=== PATIENT | male | born 1980 | race Caucasian/White ===

== ENCOUNTER 2024-06-10 10:14 | Outpatient (REF) | payer SELFPAY ==
--- OUTSIDE RECORDS SUMMARY | 2024-06-10 10:59 | XMS_ITS | Clinical Summary ---
Author Organization [employer] Address [address] [facility] [address] [place] [address] Care Team Providers Care Forklift Driver Name Role Phone Unavailable Primary Care Provider Unavailabl e Allergies Active Allergy Reactions Criticality Noted Date Comments Sulfamethoxazole-Trimethoprim Hives,Rash Low 2024 Medications * This document contains information received from the source organization and may not represent a complete record from that organization. buprenorphine ER (Sublocade) 300 mg/1.5mL injectionIndi cations:Uncom plicated opioid dependence (CMS/HCC) Inject 1.5 mL (1 each) under the skin every month to absorb continually. 1.5 mL 1 05/27/19 25 025 Active nicotine (Nicoderm CQ) 21 MG/24HR patchIndicati ons:Tobacco use disorder Place 1 patch on the skin 1 (one) time each day at the same time. 42 patch 05/27/19 25 025 Active docusate sodium (Colace) 100 MG capsuleIndica tions:Uncompl icated opioid dependence (CMS/HCC) 1 or 2 capsules PO at bedtime prn constipation (stool softener). 60 capsule 3 06/03/19 25 Active sennosides (Senokot) 8.6 MG tabletIndicat ions:Uncompli cated opioid dependence (CMS/HCC) 1 or 2 tabs PO at bedtime prn constipation (natural intestinal stimulant). 60 tablet 3 06/03/19 25 Active docusate sodium (Colace) 100 MG capsuleIndica tions:Uncompl icated opioid dependence (CMS/HCC) 1 or 2 capsules PO at bedtime prn constipation (stool softener). 60 capsule 3 06/03/19 25 025 Discontinued(R eorder (will not trigger notification to Pharmacy)) sennosides (Senokot) 8.6 MG tabletIndicat ions:Uncompli cated opioid dependence (CMS/HCC) 1 or 2 tabs PO at bedtime prn constipation (natural intestinal stimulant). 60 tablet 3 06/03/19 25 025 Discontinued(R eorder (will not trigger notification to Pharmacy)) Hospital, Clinic, or Other Facility Administered Medication Ordered Dose Route Frequency Start Date End Date Status buprenorphine ER (Sublocade) 300 mg/1.5mL injection 1 eachIndications:Uncompli cated opioid dependence (CMS/HCC) 1 each SC Over 1 month 05/27/2024 05/27/2024 Ended Encounters * This document contains information received from the source organization and may not represent a complete record from that organization. Date Type Department Care Team Description 06/10/2024 10:45 AM EST Clinical Support [address] [address] Layne Gonzalez RN Uncomplicated opioid dependence (CMS/HCC) (Primary Dx); Tobacco use disorder; Crack cocaine use 06/10/2024 Patient Outreach [address] [address] Zana Burns Recovery Supports 06/10/2024 Travel 06/03/2024 10:00 AM EST Office Visit [address] [address] Sreekanth Lyons MD Uncomplicated opioid dependence (CMS/HCC) (Primary Dx); Tobacco use disorder; Crack cocaine use 06/03/2024 Orders Only [address] [address] Lucy Carlson RN Other depression 06/03/2024 Travel 05/27/2024 11:15 AM EST Office Visit [address] [address] Sreekanth Lyons MD Uncomplicated opioid dependence (CMS/HCC) (Primary Dx); Tobacco use disorder; Crack cocaine use 05/27/2024 Travel 05/25/2024 10:00 AM EST Office Visit [address] [address] Lucy Carlson RN Uncomplicated opioid dependence (CMS/HCC) 05/25/2024 Travel 05/18/2024 Telephone [facility] MEDICINE [address] [place] [address] Lucy Carlson RN from Last 3 Months Social History Tobacco Use Types Packs/Day Years Used Date Smoking Tobacco: Every Day Cigarettes Smokeless Tobacco: Never Tobacco Cessation:Ready to Q uit: Not Asked; Counseling Given: Not Answered Alcohol Use Standard Drinks/Week Comments Not Currently 0 (1 standard drink = 0.6 oz pur e alcohol) Depression Answer Date Recorded Patient Health Questionnaire-9 Score 0 05/27/2024 Patient Health Questionnaire-9 Score 0 05/27/2024 Last PHQ-9: Questionnaire Data Not on file 0 05/27/2024 Housing Stability Answer Date Recorded What is your housing situation today? I have housing today, but I am worried about losing housing in the future 05/27/[address] you li ve. Do you have problems with any of the following? None of the above 05/27/2024 Food Insecurity Answer Date Recorded Within the past 12 months, y ou worried that your food would run out before you got money to buy more: Sometimes True 2024 Within the past 12 months,th e food you bought just didn't last and you didn't have enough money to get more: Sometimes True 05/27/2024 Transportation Answer Date Recorded In the past 12 months, has l ack of transportation kept you from medical appts, meetings, work or from getting things needed for daily living? No 05/27/2024 Utilities Answer Date Recorded In the past 12 months, has t he electric, gas, oil or water company threatened to shut off services in your home? No 05/27/2024 Depression Answer Date Recorded Patient Health Questionnaire-2 Score 0 05/27/2024 Internet Access Answer Date Recorded Internet Access Q1 I am not sure 05/27/2024 Internet Access Q2 Not on file 05/27/2024 Sex and Gender Information Value Date Recorded Sex Assigned at Male 05/25/2024 10:07 AM EST Legal Sex Male 8:35 PM EDT Gender Identity Male 05/25/2024 10:07 AM EST Sexual Orientation Straight 05/25/2024 10 :08 AM EST Last Filed Vital Signs Vital Sign Reading Time Taken Comments Blood Pressure 125/83 05/27/2024 10:44 AM EST Pulse 65 05/27/2024 10:44 AM EST Temperature 36.4 ??C (97.5 ??F) 05/27/2024 10:[address] Respiratory Rate 16 05/27/2024 10:44 AM EST Oxygen Saturation - - Inhaled Oxygen Concentration - - Weight 149 kg (328 lb) 05/27/2024 10:44 AM EST Height - - Body Mass Index - - Plan of Treatment Upcoming Encounters Date Type Department Care Team (Late st Contact Info) Description 06/17/2024 11:00 AM EST Office Visit [facility] MEDICINE [address] [place] [address] Sreekanth Lyons MD [address] [place], [place] [phone] Health Maintenance Due Date Last Done Comments CT Colonography 1979 Colonoscopy 1979 Colorectal Cancer Screening 1979 FIT DNA/Cologuard 1979 FIT 1979 FOBT 1979 HIV Screening 1979 Lipid Panel 1979 Sigmoidoscopy 1979 Family Planning (PISQ) 1994 Hepatitis C Screening 1997 DTaP/Tdap/Td Vaccines (1 - Tdap) 1998 Hepatitis B Vaccines (1 of 3 - 19+ 3-dose series) 1998 Pneumococcal Vaccine: Pediatrics (0 to 5 Years) and At-Risk Patients (6 to 49) Years) (1 of 2 - PCV) 1998 COVID-19 Vaccine ( - 2023-2 5 season) 2024 Influenza Vaccine (#1) 2024 Alcohol/Substance Use Screening 05/27/2025 05/27/2024 Depression Screening 05/27/2025 05/27/2024, 05/27/2024 SDOH Screening 05/27/2025 05/27/2024 Tobacco Screening 05/27/2025 05/27/2024 Zoster Vaccines (1 of 2) 2029 RSV Patients and Patients Aged 60 years or older (1 - 1-dose 75+ series) 2054 HIB Vaccines Aged Out No longer eligi ble based on patient's age to complete this topic HPV Vaccines Aged Out No longer eligi ble based on patient's age to complete this topic Hepatitis A Vaccines Aged Out No long er eligible based on patient's age to complete this topic IPV Vaccines Aged Out No longer eligi ble based on patient's age to complete this topic Meningococcal Vaccine Aged Out No keila michael eligible based on patient's age to complete this topic RSV under 20 months Aged Out No longe r eligible based on patient's age to complete this topic Rotavirus Vaccines Aged Out No longer eligible based on patient's age to complete this topic Procedures Procedure Name Priority Date/Time Associated Diagnosis Comments POCT ANT-14 URINE DRUG SCREEN Routine 06/03/2024 11:48 AM EST Uncomplicated opioid dependence (CMS/HCC) POCT ANT-14 URINE DRUG SCREEN Routine 05/27/2024 10:48 AM EST Uncomplicated opioid dependence (CMS/HCC) from Last 3 Months Results * POCT ANT-14 Urine Drug Screen (06/03/2024 11:48 AM EST) Only the most recent of2 resultswithin the time period is included. THC Negative Cocaine Screen, Urine Positive Opiate Screen, Urine Negative Methamphetamine Screen Urine Negative Amphetamine Screen, Urine Negative Benzodiazepines Screen, Urine Negative Barbiturate Screen, Urine Negative Methadone Screen, Urine Negative Buprenophine Screen, Urine Positive TCA, Urine Negative MDMA Urine Negative ng/mL Oxycodone Screen, Urine Negative Phencyclidine (PCP), Urine Negative Propoxyphene, Urine Negative Fentanyl, Urine Negative Urine Urine specimen obtained by clean catch procedure / Unknown 06/03/2024 11:48 AM EST Sreekanth Lyons MD POINT OF CARE TEST ENTER/EDIT ORDERABLES Final Result from Last 3 Months [facility]
--- OUTSIDE RECORDS SUMMARY | 2024-06-10 10:59 | XMS_ITS | Encounter Summary ---
Author Organization [employer] Address [address] [facility] [address] [place] [address] Care Team Providers Care Direct Marketing Representative Name Role Phone Unavailable Primary Care Provider Unavailabl e Encounter Details Date Type Department Care Team (Latest Contact Info) Description 06/10/2024 Travel Social History Tobacco Use Types Packs/Day Years Used Date Smoking Tobacco: Every Day Cigarettes Smokeless Tobacco: Never Alcohol Use Standard Drinks/Week Comments Not Currently [...] Orientation Straight 05/25/2024 10 :08 AM EST documented as of this encounter Plan of Treatment Upcoming Encounters Date Type Department Care Team (Late st Contact Info) Description 06/17/2024 11:00 AM EST Office Visit [facility] MEDICINE [address] [place], [place] [phone] Sreekanth Lyons MD [address] [place] [address] documented as of this encounter Visit Diagnoses Not on filedocumented in this encounter Additional Health Concerns Assessment Noted Time PHQ-9 Depression Total Score: 0 05/27/19 25 10:46 AM EST documented as of this encounter
--- OUTSIDE RECORDS SUMMARY | 2024-06-10 10:59 | XMS_ITS | Encounter Summary ---
Author Organization [employer] Address [address] [facility] 7t [place] [address] Care Team Providers Care Dehydrator Operator Name Role Phone Unavailable Primary Care Provider Unavailabl e Encounter Details Date Type Department Care Team (Latest Contact Info) Description 05/25/2024 10:00 AM EST Office Visit [facility] MEDICINE [address] [place] [address] Lucy Carlson RN Uncomplicated opioid dependence (CMS/HCC) Social History Tobacco Use Types Packs/Day Years Used Date Smoking Tobacco: Never Assessed Depression Answer Date Recorded Patient Health Questionnaire-9 [...] AM EST documented as of this encounter Progress Notes * Lucy Carlson RN - 05/25/2024 10:00 AM EST MAT Nurse Intake PCP: Has an outside PCP, no sure who it is, given to him by his insurance Last visit: ALLERGIES: Bactrim Drug Use History *Has there been any intentional Fentanyl use: Denies Tobacco: First use age 14, smokes daily, 1 ppd, uninterested in quitting Non-prescribed opiates: First use age 17, last use several years ago, 1 or 2 x per week, nasally/orally Marijuana: First use age 17, smokes daily Benzo's: First use age 24, last use late February,, used orally, nasally, 2 or 3 tabs, depending on what was available per intermediate documentation 05/17/24). Denied overdose, black outs or benzo w/d. [facility] reports prescribed benzo's at [place], but not documented on paperwork received 05/17/24. Ever used IV: Denies Overdose history: Denies Safer usage (Narcan, not using alone, clean needles) Gambling (include age of first use, frequency, type of gambling, if they feel it is a problem) Smoking: Include age of first use, cigarettes smoked per day, interest in quitting and availabilityof help to stop smoking: Alcohol: Denied misuse. Alf paperwork documents pt stopped drinking when he started heroin. Gabapentin: Not asked, but pt reported street use, with no adverse effects per intermediate documentation 05/17/24. Cocaine: First use age 36, last use March,, inhaled daily Crack: First use age 36, last use March,, smoked daily Heroin: First use age 37, last use March,, inhaled daily. Peak use was 1.5 bundles daily. PRIOR SUBSTANCE USE DISORDER TREATMENT Detox: Denies Residential program: Denies History of [facility]: x 1 at [facility] Drunk Driving: Denies Participation in NA/AA in last 30 days: Denies Methadone: Denies Buprenorphine/Naloxone: x 1 at [facility] in [place], 24/08, states weaned himself off Naltrexone: Denies Discuss oral Hygiene: After the medicine is completely dissolved, the patient should take a large sip of water, swish it gently around the teeth and gums, swallow, and wait at least 1 hour before brushing their teeth. This will allow time for the mouth to gradually return to its normal state and avoid any mechanical damage that may occur due to brushing. Normal oral hygiene including twice daily brushing and regular flossing should be maintained, along with regular consumption of water throughout the day and routinedental checkups. MENTAL HEALTH HISTORY: Patient met with therapist, Nisa today. Patient reports feelings of fearfulness of self because I am a cutter. Denies active S/I, H/I today. Have you ever been diagnosed with any mental health conditions: Anxiety, Depression, ADHD per pt. Per intermediate documentation (05/17/24), Bipolar Disorder, pt agrees with dx. Pt endorsed NSSIB (last with behavior a month prior to admission to [facility]). Current meds: Trileptal, Clonidine, Olanzapine, Vistaril, Cogentin, Wellbutrin, Trazodone Buspar Counselor: James murillo, cannot remember details. History of mental health hospitalizations: x 1 at [facility] in [place]. Within the past month, do you have difficulties doing daily activities: Denies PHYSICAL HEALTH STATUS Describe your current health: Pretty good. Have you ever been diagnosed with any other medical conditions: GERD, Asthma, Varicose Veins Are you on any medications for this/these conditions: Pt reports albuterol inhaler and prilosec Hepatitis A status: Unknown Hepatitis B status: Unknown Hepatitis C: Denies HIV: Denies COVID vaccine status: Denies, uninterested PPD: Negative 00 mm induration, 0 mm erythema. Plant date 03/18/24 and read date 03/21/24 Hospitalizations in last 12 months: Denies ER visits in last 12 months: Denies Do you have any pending surgeries: Varicose veins Have you ever taken PrEP for HIV prevention: Denies, uninterested Vision impairments: Denies Hearing impairments: Denies, but c/o constant ringing in ears Developmental Disabilities: Denies ADL Impairments: Denies PAIN Do you have chronic pain: Whole body pain, back, legs, shoulders Pain scale: Rated 4 on 0 to 10 scale Has your pain lasted 3 months or longer: Yes SOCIAL HISTORY: Incarceration history: Denies 1 arrest, not in past 30 days Denies parole, probation or bail Dropped out in the 9th grade Identifies as straight male Never No children Staying with friends, couch surfing. Unemployed Denies service Can you tell me what your goals are for treatment: OBAT program reviewed with patient including requirements to keep medical and OBAT appointments, urine toxicology screens and possible random call backs with medication counts. He / She is aware of his/her responsibility for their buprenorphine/naloxone medication. Informed to keep medication in a safe undisclosed place, out of reach of children and visitors. Informed to keep medication in a locked storage unit. OBAT consent and contract read to and reviewed with the patient. Patient voluntarily signed and dated consent. Opportunity for questions provided. Discussed buprenorphine/naloxone - reviewed medication, potential side effects including elevationsin liver function tests, potential lethal interaction with benzodiazepines and ETOH, safe administration and storage. Patient verbalized understanding of information provided and wishes to proceed. Overdose education provided. Pt aware of how to access a naloxone rescue kit. documented in this encounter Plan of Treatment Upcoming Encounters Date Type Department Care Team (Late st Contact Info) Description 06/17/2024 11:00 AM EST Office Visit [facility] MEDICINE [address] [place] [address] Sreekanth Lyons MD [address] [place] [address] documented as of this encounter Visit Diagnoses Diagnosis Uncomplicated opioid dependence (CMS/HCC) documented in this encounter
--- OUTSIDE RECORDS SUMMARY | 2024-06-10 10:59 | XMS_ITS | Encounter Summary ---
Author Organization [employer] Address [address] [facility] [address] [place] [address] Care Team Providers Care Engineering Illustrator Name Role Phone Unavailable Primary Care Provider Unavailabl e Encounter Details Date Type Department Care Team (Latest Contact Info) Description 06/03/2024 Travel Social History Tobacco Use Types Packs/Day [...] Description 06/17/2024 11:00 AM EST Office Visit [facility] MEDICINE [address] [place], [place] [phone] Sreekanth Lyons MD [address] [place] [address] documented as of this encounter Visit Diagnoses Not on filedocumented in this encounter Additional Health Concerns Assessment Noted Time PHQ-9 Depression Total Score: 0 05/27/19 25 10:46 AM EST documented as of this encounter
--- OUTSIDE RECORDS SUMMARY | 2024-06-10 10:59 | XMS_ITS | Encounter Summary ---
Author Organization [employer] Address [address] [facility] [address] [place] [address] Care Team Providers Care Rock Lather Name Role Phone Unavailable Primary Care Provider Unavailabl e Encounter Details Date Type Department Care Team (Latest Contact Info) Description 05/27/2024 Travel Social History Tobacco Use Types Packs/Day [...] Description 06/17/2024 11:00 AM EST Office Visit [facility] MEDICINE [address] [place], [place] [phone] Sreekanth Lyons MD [address] [place] [address] documented as of this encounter Visit Diagnoses Not on filedocumented in this encounter Additional Health Concerns Assessment Noted Time PHQ-9 Depression Total Score: 0 05/27/19 25 10:46 AM EST documented as of this encounter
--- OUTSIDE RECORDS SUMMARY | 2024-06-10 10:59 | XMS_ITS | Encounter Summary ---
Author Organization [employer] [facility] Address [address] 7[address] [place] [address] Care Team Providers Care Engraver Wood Name Role Phone Unavailable Primary Care Provider Unavailabl e Reason for Visit * Reason Comments OBAT Intake Encounter Details Date Type Department Care Team (Latest Contact Info) Description 05/27/2024 11:15 AM EST Office Visit [facility] [address] [place], [place] [phone] Sreekanth Lyons MD [address] [place], [place] [phone] Uncomplicated opioid dependence (CMS/HCC) (Primary Dx); Tobacco use disorder; Crack cocaine use Social History Tobacco Use Types Packs/Day Years [...] AM EST documented as of this encounter Last Filed Vital Signs Vital Sign Reading [...] - - Body Mass Index - - documented in this encounter Progress Notes * Sreekanth Lyons MD - 05/27/2024 11:15 AM EST 44 y.o. male is here today for MD intake for OUD. PCP: Has an outside PCP, no sure who it is, given to him by his insurance ALLERGIES: Bactrim Drug Use History *Has there [...] tabs, depending on what was available per group home documentation 05/17/24). Denied overdose, black outs or benzo w/d. Jamey reports prescribed benzo's at [facility], but not documented on paperwork received 05/17/24. Ever used IV: Denies Overdose history: Denies Safer usage (Narcan, not using alone, clean needles) Gambling (include age of first use, frequency, type of gambling, if they feel it is a problem) Smoking: Include age of first use, cigarettes smoked per day, interest in quitting and availabilityof help to stop smoking: Alcohol: Denied misuse. [facility] paperwork documents pt stopped drinking when he started heroin. Gabapentin: Not asked, but pt reported street use, with no adverse effects per group home documentation 05/17/24. Cocaine: First use age 36, last use March,, inhaled daily Crack: First use age 36, last use March,, smoked daily Heroin: First use age 37, last use March,, inhaled daily. Peak use was 1.5 bundles daily. PRIOR SUBSTANCE USE DISORDER TREATMENT Detox: Denies Residential program: Denies History of Section 35: x 1 at [facility], [place] Drunk Driving: Denies Participation in NA/AA in last 30 days: Denies Methadone: Denies Buprenorphine/Naloxone: x 1 at [facility] in [place], 24/08, states weaned himself off Naltrexone: Denies [...] conditions: Anxiety, Depression, ADHD per pt. Per group home documentation (05/17/24), Bipolar Disorder, pt agrees with dx. Pt endorsed NSSIB (last with behavior a month prior to admission to Section 35). Current meds: Trileptal, Clonidine, Olanzapine, Vistaril, Cogentin, Wellbutrin, Trazodone Buspar Counselor: Remote hx, cannot remember details. History of mental health hospitalizations: x 1 at [facility] at [facility] in [place]. Within the past month, do you have [...] with friends, couch surfing. Unemployed Denies service PT1 needs Single Can you tell me what your goals [...] keep medication in a locked storage unit. Today 05/27/24 F/U for opioid use disorder Arjun [employer] premium representative and JAYDE FLAVOR EXTRACTOR reviewed. Recent discharge after section 35. His mom sectioned him. He received 300 mg on Sublocade during admission. Due today. States it's like magic. No cravings, no ADRs Hx of heroin and crack cocaine use. Never IV. Intermittent cocaine craving. No other substance use. Rare alcohol. Needs narcan and FEN test strip. Met with Fernando Chase classroom technology coach. Met with Nisa Pelayo team therapist, 2 days ago. He will be referred to a psych Rxer. Occasional marijuana. Rare alcohol. Does have a place to stay but needs housing. Needs PT1. PCP elsewhere. Hx of varicose veins and leg swelling-will need 'surgery' again for his varicose veins. He has had 1 Covid shot. Declines flu and Covid vaccine. Currently, not sexually active. Smoking ~ 1 PPD. Nicotine patches seemed to help. Interested in same. Declines nicotine lozenges orgum. Objective Physical Exam Constitutional: Appearance: Normal appearance. HENT: Mouth/Throat: Comments: Dental some decay. Eyes: Conjunctiva/sclera: Conjunctivae normal. Pupils: Pupils are equal, round, and reactive to light. Cardiovascular: Rate and Rhythm: Normal rate and regular rhythm. Pulmonary: Effort: Pulmonary effort is normal. Breath sounds: Normal breath sounds. Abdominal: General: Abdomen is flat. Palpations: Abdomen is soft. Tenderness: There is no abdominal tenderness. Musculoskeletal: Right lower leg: Edema present. Left lower leg: Edema present. Comments: Varicose veins bilaterally, 2+ left, 1+ pretibial edeme. Neurological: Mental Status: He is alert and oriented to person, place, and time. Psychiatric: Mood and Affect: Mood normal. Behavior: Behavior normal. Thought Content: Thought content normal. Assessment/Plan Uncomplicated opioid dependence (CMS/[facility]). Utox BUP premium representative and JAYDE FLAVOR EXTRACTOR reviewed. Recent discharge after section 35. His mom sectioned him. He received 300 mg on Sublocade during admission. Due today. States it's like magic. No cravings, no ADRs Hx of heroin and crack cocaine use. Never IV. Intermittent cocaine craving. No other substance use. Rare alcohol. Needs narcan and FEN test strip. Met with Fernando Chase classroom technology coach. Met with Nisa Pelayo team therapist, 2 days ago. He will be referred to a psych Rxer. Occasional marijuana. Rare alcohol. Does have a place to stay but needs housing. Needs PT1. PCP elsewhere. Hx of varicose veins and leg swelling-will need 'surgery' again for his varicose veins. He has had 1 Covid shot. Declines flu and Covid vaccine. Currently, not sexually active. Smoking ~ 1 PPD. Nicotine patches seemed to help. Interested in same. Declines nicotine lozenges orgum. As above. Doing well post Section 35. Tolerating Subloade with no ADRs. Likely one more 300 mg Sublocade dose and to consider trial 100 mg. Met with a Fernando Chase classroom technology coach. Met with team therapist 2 days ago. I will review with her and make sure he is being referred to a psych Rxer. RN to arrange PT1. Dispenced FEN test strips. Sublocade 300 mg subcutaneous, reviewed possible ADRs. Labs next week. Program expectations and requirement reviewed. Possible ADRs reviewded. Informed he will become physically dependent on Sublocade and may experience WD. Groups available in [facility]. To offer services next visit. Declines PrEP. Declines vaccines. F/U 1 week. Tobacco use disorder As above. Rxed 21 mg nicotine patch # 42. Continue to review. Crack cocaine use As above. Safe use reviewed. Dispensed FEN test strips. Safe use reviewed. Continue to monitor. Diagnoses and all orders for this visit: Uncomplicated opioid dependence ([facility]) - POCT ANT-14 Urine Drug Screen - buprenorphine ER (Sublocade) 300 mg/1.5mL injection; Inject 1.5 mL (1 each) under the skin every month to absorb continually. Tobacco use disorder - nicotine (Nicoderm CQ) 21 MG/24HR patch; Place 1 patch on the skin 1 (one) time each day at the same time. Crack cocaine use This information has been disclosed to you from records protected by federal confidentiality rules(42 CFR Part 2). The federal rules prohibit you from making any further disclosure of information in this record that identifies a patient as having or having had a substance use disorder either directly, by reference to publicly available information, or through verification of such identificationby another person unless further disclosure is expressly permitted by the written consent of the individual whose information is being disclosed or as otherwise permitted by (see 2.3.1). The federal rules restrict any use of the information to investigate or prosecute with regard to a crime any patient with a substance use disorder, except as provided at 2.12??(5) and 2.65. * Layne Gonzalez RN - 05/27/2024 11:15 AM EST Sublocade reviewed. Pt verbalized understanding. Sublocade 300 mg given SQ lower left abdomen. Pt tolerated injection, no adverse reactions noted. Advised pt to call RN with any questions or concerns. Cosigned by Sreekanth Lyons MD at 05/30/2024 9:34 AM EST documented in this encounter Plan of Treatment Upcoming Encounters Date Type Department Care Team (Late st Contact Info) Description 06/17/2024 11:00 AM EST Office Visit [facility] [address] [place] [phone] Sreekanth Lyons MD [address] [place] [phone] documented as of this encounter Procedures Procedure Name Priority Date/Time Associated Diagnosis Comments POCT ANT-14 URINE DRUG SCREEN Routine 05/27/2024 10:48 AM EST Uncomplicated opioid dependence (CMS/[facility]) documented in this encounter Results * POCT ANT-14 Urine Drug Screen (05/27/2024 10:48 AM EST) THC Negative Cocaine Screen, Urine Negative Opiate Screen, Urine Negative Methamphetamine Screen Urine Negative Amphetamine Screen, Urine Negative Benzodiazepines Screen, Urine Negative Barbiturate Screen, Urine Negative Methadone Screen, Urine Negative Buprenophine Screen, Urine Positive TCA, Urine Negative MDMA Urine Negative ng/mL Oxycodone Screen, Urine Negative Phencyclidine (PCP), Urine Negative Propoxyphene, Urine Negative Fentanyl, Urine Negative Urine Urine specimen obtained by clean catch procedure / Unknown 05/27/2024 10:48 AM EST Sreekanth Lyons MD POINT OF CARE TEST ENTER/EDIT ORDERABLES Final Result documented in this encounter Visit Diagnoses Diagnosis Uncomplicated opioid dependence (CMS/HCC)- Primary Tobacco use disorder Crack cocaine use Nondependent cocaine abuse, unspecified documented in this encounter Administered Medications Inactive Administered Medications - up to 3 most recent administrations Medication Order MAR Action Action Date Dose Rate Site buprenorphine ER (Sublocade) 300 mg/1.5mL injection 1 each 1 each, Subcutaneous, Over 1 month, First dose on Thu05/27/24 at 1345, For 1 dose, For abdominal subcutaneous injection only Remove Sublocade from the fridge at least 15 minutes prior to administration. Discard if left at room temperature for longer than 7 days. Do not open the foil pouch until patient arrives. See package insert for specific administration instructions. Do not administer intravenously or intramuscularly.Indication s:Uncomplicated opioid dependence (CMS/HCC) Given 05/27/2024 1:45 PM EST 1 each Left Lower Abdomen documented in this encounter Additional Health Concerns Assessment Noted Time PHQ-9 Depression Total Score: 0 05/27/19 10:46 AM EST documented as of this encounter
--- OUTSIDE RECORDS SUMMARY | 2024-06-10 10:59 | XMS_ITS | Encounter Summary ---
Author Organization [facility] [employer] [facility] Address [address] [place] [address] Care Team Providers Care Torch Heater Name Role Phone Unavailable Primary Care Provider Unavailabl e Reason for Visit * Reason Comments OBAT Encounter Details Date Type Department Care Team (Latest Contact Info) Description 06/10/2024 10:45 AM EST Clinical Support [facility] [address] [place] [address] [phone] Layne Gonzalez RN Uncomplicated opioid dependence (CMS/HCC) [...] the past 12 months, has t he [employer], gas, oil or water company threatened to [...] 06/17/2024 11:00 AM EST Office Visit [facility] [address] [place] [address] Sreekanth Lyons MD [address] [place] [address] documented as of this encounter Visit Diagnoses Diagnosis Uncomplicated opioid dependence (CMS/HCC)- Primary Tobacco use disorder Crack cocaine use Nondependent cocaine abuse, unspecified documented in this encounter Additional Health Concerns Assessment Noted Time PHQ-9 Depression Total Score: 0 05/27/19 25 10:46 AM EST documented as of this encounter
--- OUTSIDE RECORDS SUMMARY | 2024-06-10 10:59 | XMS_ITS | Encounter Summary ---
Author Organization [employer] Address [address] 7[address] [place] [address] Care Team Providers Care Coordinator Cardiopulmonary Services Name Role Phone Unavailable Primary Care Provider Unavailabl e Reason for Referral * Consultation (Routine) - Closed Specialty Diagnoses / Procedures Referred By Contac t Referred To Contact Psychiatry / Behavioral Health Diagnoses Other depression Sreekanth Lyons MD [address] [place] [address] Phone: tel: fax: Efren Bang PMHNP [address] [place] [address] Phone: tel: fax: Referral ID Status Reason Start Date Expiration Date V isits Requested Visits Authorized [id number] Closed Specialty Services Required 06/03/2024 06/03/2025 1 1 Encounter Details Date Type Department Care Team (Late st Contact Info) Description 06/03/2024 Orders Only [facility] [address] [place] [address] Lucy Carlson RN Other depression Social History Tobacco Use Types Packs/Day Years [...] Description 06/17/2024 11:00 AM EST Office Visit [facility] [address] [place] [phone] Sreekanth Lyons MD [address] [place] [address] Scheduled Referrals Name Type Priority Associated Diagnoses Order Schedule Referral to Behavioral Health Psychiatry Outpatient Referral Routine Other depression Expected: 06/03/2024 (Approximate), Expires: 06/03/2025 documented as of this encounter Visit Diagnoses Diagnosis Other depression documented in this encounter Additional Health Concerns Assessment Noted Time PHQ-9 Depression Total Score: 0 05/27/19 25 10:46 AM EST documented as of this encounter
--- OUTSIDE RECORDS SUMMARY | 2024-06-10 10:59 | XMS_ITS | Encounter Summary ---
Author Organization [employer] Address [address] 7t [place] [address] Care Team Providers Care Parts Cataloger Name Role Phone Unavailable Primary Care Provider Unavailabl e Reason for Visit * Reason Comments OBAT Encounter Details Date Type Department Care Team (Latest Contact Info) Description 06/03/2024 10:00 AM EST Office Visit [facility] [address] [place], [place] [phone] Sreekanth Lyons MD [address] [place], [place] [phone] Uncomplicated opioid dependence (CMS/HCC) (Primary Dx); Tobacco [...] as of this encounter Progress Notes * Sreekanth Lyons MD - 06/03/2024 10:30 AM EST Darnell is her today for f/u for OBOT 05/27/24 Utox BUP packer sausage and wiener and JAYDE CHILD WELFARE MANAGER reviewed. Recent discharge after section 35. His mom sectioned him. He received 300 mg on Sublocade during admission. Due today. States it's like magic. No cravings, no ADRs Hx of heroin and crack cocaine use. Never IV. Intermittent cocaine craving. No other substance use. Rare alcohol. Needs narcan and FEN test strip. Met with Fernando Chase strength and conditioning coach. Met with Nisa Pelayo team therapist, [...] 100 mg. Met with a Fernando Chase strength and conditioning coach. Met with team therapist 2 days [...] and may experience WD. Groups available in [facility]. To offer services next visit. Declines PrEP. Declines vaccines. F/U 1 week. Tobacco use disorder As above. Rxed 21 mg nicotine patch # 42. Continue to review. Crack cocaine use As above. Safe use reviewed. Dispensed FEN test strips. Safe use reviewed. Continue to monitor. Today 06/03/24 F/U for opioid use disorder Utox BUP, TREY Doing ok. Has an appointment with a new PCP, Dr. Dank Bundy, 07/06/24. He is trying to get into the [facility] in [place]. Working with someone. Currently, staying at a friend's place. Missed an appointment with [facility]. He can call and make another appointment. Sublocade is working. No cravings. Stools hard, sometime only go q 2-3 days. His food stamps have been improved as has his PT1 for visits here. Did smoke crack/heroin mixed once during the week. Took 2 hits. Used because he was with old friends. Has FEN test strips thought dis not use them. Did not picking crew supervisor nicotine patches last week. Will today. To do labs today. Objective Physical Exam Constitutional: Appearance: Normal appearance. Neurological: Mental Status: He is alert and oriented to person, place, and time. Psychiatric: Mood and Affect: Mood normal. Behavior: Behavior normal. Thought Content: Thought content normal. Assessment/Plan Uncomplicated opioid dependence (CMS/HCC) Utox BUP, TREY Doing ok. Has an appointment with a new PCP, Dr. Dank Bundy, 07/06/24. He is trying to get into the [facility] in [place]. Working with someone. Currently, staying at a friend's place. Missed an appointment with [facility]. He can call and make another appointment. Sublocade is working. No cravings. Stools hard, sometime only go q 2-3 days. His food stamps have been improved as has his PT1 for visits here. Did smoke crack/heroin mixed once during the week. Took 2 hits. Used because he was with old friends. Has FEN test strips thought do not use them. As above. Week was ok, lots of stuff still to get in place. Reviewed constipation. Rxed colace & senna-asked to send to [facility]. In the process of getting a therapist and psychiatrist. We discussed this. I will place a referral to Efren Henry, psychiatric nurse practitioner in case other plan does not work out. He declined meeting with a strength and conditioning coach. Agrees to do labs. F/U 1 week. Tobacco use disorder Will picking crew supervisor nicotine patches today. Review on f/u. Crack cocaine use Discussed. Safe use reviewed. Continue to discuss. Diagnoses and all orders for this visit: Uncomplicated opioid dependence (CMS/HCC) - Hepatic Function Panel; Future - Hepatitis C Antibody with Reflex to HCV, RNA, Quantitative, Real-Time PCR; Future - Hepatitis B Core Antibody, Total; Future - Hepatitis A Antibody, Total; Future - Creatinine, Serum; Future - BUN (Blood Urea Nitrogen); Future - CBC auto differential; Future - T-SPOT??.TB; Future - Hepatitis B surface antigen, EIA; Future - Hepatitis B Surface Antibody, Qualitative; Future - Chlamydia/N. Gonorrhoeae RNA, TMA, Urogenitial; Future - HIV-1/2 Antigen and Antibodies, Fourth Generation, with Reflexes; Future - RPR (Monitor) with Reflex to Titer; Future Tobacco use disorder Crack cocaine use This information has been [...] except as provided at 2.12??(5) and 2.65. documented in this encounter Plan of Treatment Upcoming Encounters Date Type Department Care Team (Late st Contact Info) Description 06/17/2024 11:00 AM EST Office Visit [facility] [address] [place] [phone] Sreekanth Lyons MD [address] [place] [address] [phone] Scheduled Orders Name Type Priority Associated Diagnoses Orde r Schedule Hepatic Function Panel Lab Routine Uncomplicated opioid dependence (CMS/HCC) Expected: 06/03/2024 (Approximate), Expires: 06/03/2025 Hepatitis C Antibody with Reflex to HCV, RNA, Quantitative, Real-Time PCR Lab Routine Uncomplicated opioid dependence (CMS/HCC) Expected: 06/03/2024 (Approximate), Expires: 06/03/2025 Hepatitis B Core Antibody, Total Lab Routine Uncomplicated opioid dependence (CMS/HCC) Expected: 06/03/2024 (Approximate), Expires: 06/03/2025 Hepatitis A Antibody, Total Lab Routine Uncomplicated opioid dependence (CMS/HCC) Expected: 06/03/2024 (Approximate), Expires: 06/03/2025 Creatinine, Serum Lab Routine Uncomplicated opioid dependence (CMS/HCC) Expected: 06/03/2024 (Approximate), Expires: 06/03/2025 BUN (Blood Urea Nitrogen) Lab Routine Uncomplicated opioid dependence ([facility]) Expected: 06/03/2024 (Approximate), Expires: 06/03/2025 CBC auto differential Lab Routine Uncomplicated opioid dependence ([facility]) Expected: 06/03/2024 (Approximate), Expires: 06/03/2025 T-SPOT??.TB Lab Routine Uncomplicated opioid dependence ([facility]) Expected: 06/03/2024 (Approximate), Expires: 06/03/2025 Hepatitis B surface antigen, EIA Lab Routine Uncomplicated opioid dependence ([facility]) Expected: 06/03/2024 (Approximate), Expires: 06/03/2025 Hepatitis B Surface Antibody, Qualitative Lab Routine Uncomplicated opioid dependence ([facility]) Expected: 06/03/2024 (Approximate), Expires: 06/03/2025 Chlamydia/N. Gonorrhoeae RNA, TMA, Urogenitial Microbiology Routine Uncomplicated opioid dependence ([facility]) Expected: 06/03/2024 (Approximate), Expires: 06/03/2025 HIV-1/2 Antigen and Antibodies, Fourth Generation, with Reflexes Lab Routine Uncomplicated opioid dependence ([facility]) Expected: 06/03/2024 (Approximate), Expires: 06/03/2025 RPR (Monitor) with Reflex to??Titer Lab Routine Uncomplicated opioid dependence ([facility]) Expected: 06/03/2024, Expires: 06/03/2025 documented as of this encounter Procedures Procedure Name Priority Date/Time Associated Diagnosis Comments POCT ANT-14 URINE DRUG SCREEN Routine 06/03/2024 11:48 AM EST Uncomplicated opioid dependence ([facility]) documented in this encounter Results * POCT ANT-14 Urine Drug Screen (06/03/2024 11:48 AM EST) THC Negative Cocaine Screen, Urine Positive Opiate [...] procedure / Unknown 06/03/2024 11:48 AM EST us Sreekanth Lyons MD POINT OF CARE TEST ENTER/EDIT ORDERABLES Final Result documented in this encounter Visit Diagnoses Diagnosis Uncomplicated opioid dependence (CMS/[facility])- Primary Tobacco use disorder Crack cocaine use Nondependent cocaine abuse, unspecified documented in this encounter Additional Health Concerns Assessment Noted Time PHQ-9 Depression Total Score: 0 05/27/19 10:46 AM EST documented as of this encounter
--- OUTSIDE RECORDS SUMMARY | 2024-06-10 10:59 | XMS_ITS | Encounter Summary ---
Author Organization [employer] Address [address] 7t [place] [address] Care Team Providers Care Campus Recruiter Name Role Phone Unavailable Primary Care Provider Unavailabl e Reason for Visit * Reason Comments Recovery Supports Encounter Details Date Type Department Care Team (Late st Contact Info) Description 06/10/2024 Patient Outreach [facility] [address] [place] [address] Zana Burns Recovery Supports Social History Tobacco Use Types Packs/Day Years [...] Description 06/17/2024 11:00 AM EST Office Visit [facility] [address] [place] [address] Sreekanth Lyons MD [address] [place] [address] documented as of this encounter Visit Diagnoses Not on filedocumented in this encounter Additional Health Concerns Assessment Noted Time PHQ-9 Depression Total Score: 0 05/27/19 25 10:46 AM EST documented as of this encounter
--- OUTSIDE RECORDS SUMMARY | 2024-06-10 10:59 | XMS_ITS | Encounter Summary ---
Author Organization [employer] [facility] Address [address] [facility] 7t [place] [address] Care Team Providers Care Scientist Engineer Name Role Phone Unavailable Primary Care Provider Unavailabl e Encounter Details Date Type Department Care Team (Late st Contact Info) Description 05/18/2024 Telephone [facility] MEDICINE [address] [place] [address] [phone] Lucy Carlson RN Social History Tobacco Use Types Packs/Day Years Used Date Smoking Tobacco: Never Assessed Sex and Gender Information Value Date Recorded Sex Assigned at Male 05/25/2024 10:07 AM EST Legal Sex Male 8:35 PM EDT Gender Identity Male 05/25/2024 10:07 AM EST Sexual Orientation Straight 05/25/2024 10 :08 AM EST documented as of this encounter Miscellaneous Notes * Telephone Encounter - Lucy Carlson RN - 05/18/2024 3:54 PM EST Telephone call received from Tamra at [facility]. Patient is releasing on 05/23/24, and is requesting an riding double appt. Scheduled for 05/25/24 at 10:00 a.m. with mortgage or loan underwriter. He received hisfirst dose of sublocade 300 mg on 05/02/24. Next due 05/30/24. documented in this encounter Plan of Treatment Upcoming Encounters Date Type Department Care Team (Late Contact Info) Description 06/17/2024 11:00 AM EST Office Visit [facility] MEDICINE [address] [place] [address] [phone] Sreekanth Lyons MD [address] [place], [place] [phone] documented as of this encounter Visit Diagnoses Not on filedocumented in this encounter
--- OUTSIDE RECORDS SUMMARY | 2024-06-10 10:59 | XMS_ITS | Encounter Summary ---
Author Organization [facility] [employer] Address [address] [facility] 7t [place] [address] Care Team Providers Care Cable Placer Name Role Phone Unavailable Primary Care Provider Unavailabl e Encounter Details Date Type Department Care Team (Latest Contact Info) Description 05/25/2024 Travel Social History Tobacco Use Types Packs/Day [...] Description 06/17/2024 11:00 AM EST Office Visit [facility] MEDICINE [address] [place] [address] Sreekanth Lyons MD [address] [place] [address] documented as of this encounter Visit Diagnoses Not on filedocumented in this encounter
[2024-06-10 12:02] LABS: MANUAL DIFF FLAG NO
[2024-06-10 12:33] LABS: Alanine Aminotransferase 18 U/L (0-40); Albumin Level 3.9 g/dL (3.5-5.0); Alkaline Phosphatase 74 U/L (39-117); Aspartate Amino Transferase 19 U/L (5-37); Bilirubin Direct 0.1 mg/dL (0.0-0.5); Bilirubin Total 0.4 mg/dL (0.0-1.0); Blood Urea Nitrogen 14 mg/dL (9-16); Estimated Glomerular Filt Rate > 60; Total Protein 6.6 g/dL (6.5-8.0)
[2024-06-10 12:37] LABS: Basophils Percent Auto 0.4 % (0-2); Eosinophils Absolute Auto 0.3 X10*3/uL (0.0-0.4); Eosinophils Percent Auto 6.3 % (0-4); Hematocrit 38.5 % (42.0-52.0); Hemoglobin 13.1 g/dl (14.0-18.0); Imm Gran Abs Auto 0.01 X10*3/uL (0.00-0.03); Imm Gran Pct Auto 0.2 % (0.0-0.4); Lymphocytes Absolute Auto 0.8 X10*3/uL (1.2-4.9); Lymphocytes Percent Auto 18.9 % (20-40); Mean Corpuscular Hemoglobin 28.9 pg (27.0-33.0); Mean Corpuscular Volume 84.8 fL (80.0-98.0); Mean Platelet Volume 9.5 fL (9.4-12.4); Monocytes Absolute Auto 0.3 X10*3/uL (0.1-1.2); Monocytes Percent Auto 6.7 % (2-11); Neutrophils Percent Auto 67.5 % (45-73); Platelet Count 199 X10*3/uL (160-400); Red Blood Count 4.54 X10*6/uL (4.60-5.80); Red Cell Distribution Width 12.2 % (11.0-16.0); White Blood Count 4.5 X10*3/uL (4.8-10.8)
[2024-06-10 12:57] LABS: Hepatitis A Antibody IgG Nonreactive (Nonreactive); ~Hepatitis A Antibody IgG 0.25 S/CO (0.00-0.99)
[2024-06-10 12:59] LABS: HBS Num1 0.58 mIU/mL (0-7.99); HBc Num1 0.18 S/CO (0.00-0.79); HBsAGNum1 0.41 S/CO (0.00-0.99); HIV AB/AG Nonreactive (Nonreactive); HIV Num 1 0.05 S/CO (0.00-0.99); Hepatitis B Core Antibody Nonreactive (Nonreactive); Hepatitis B Surface Antigen Negative (Negative); ~HepC Num1 0.07 S/CO (0.00-0.79); ~Hepatitis B Surface Antibody NONREACTIVE (Nonreactive); ~Hepatitis C Antibody Nonreactive (Nonreactive)
[2024-06-13 10:09] LABS: TS Negative Control Passed; TS Panel A 0; TS Panel B 0; TS Positive Control Passed; TSpotTB Negative (Negative)
[2024-06-13 10:39] LABS: RPR Rapid Plasma Reagin NON-REACTIVE (NON-REACTIVE)
== END 2024-06-10 10:15 | disposition home or self-care (01) ==
LOC: HO.HHCL 10:14
PROVIDERS: Visit Provider Emergency Medicine
DX: F11.20 Opioid dependence, uncomplicated (principal)
CPT/HCPCS: 36415; 80076; 82565; 84520; 85025; 86481; 86592; 86704; 86706; 86708; 86803; 87340; 87389

== ENCOUNTER 2024-11-25 09:02 | Outpatient (REF) | payer MEDICAID, SELFPAY ==
--- OUTSIDE RECORDS SUMMARY | 2024-11-25 09:06 | XMS_ITS | Encounter Summary ---
Author Organization [employer] Address [address] [facility] 7t [place] [address] Care Team Providers Care Senior Network Administrator Name Role Phone Arlet Sandoval NP Primary Care Provider [phone] Encounter Details Date Type Department Care Team (Late st Contact Info) Description 07/01/2024 Telephone [facility] MEDICINE [address] [place], [place] [phone] Arlet Sandoval NP [address] [place], [place] [phone] Social History Tobacco Use Types Packs/Day Years Used Date Smoking Tobacco: Every Day Cigarettes Smokeless Tobacco: Never Alcohol Use Standard Drinks/Week Comments Not Currently 0 (1 standard drink = 0.6 oz pur e alcohol) Depression Answer Date Recorded Patient Health Questionnaire-9 Score 4 06/30/2024 Patient Health Questionnaire-9 Score 4 06/30/2024 Last PHQ-9: Questionnaire Data Not on file 0 06/30/2024 Housing Stability Answer Date Recorded What is [...] Answer Date Recorded Patient Health Questionnaire-2 Score 1 06/30/2024 Internet Access Answer Date Recorded Internet Access [...] encounter Miscellaneous Notes * Telephone Encounter - Diane Graham - 07/01/2024 11:25 AM EST TC placed to patient for scheduling of new patient visit. Agreed to 08/12/24 with Arlet Medical Conditions: Anxiety Mental health Last seen unknown Apptmnt reminder and release form sent via mail . documented in this encounter Plan of Treatment Upcoming Encounters Date Type Department Care Team (Late st Contact Info) Description 12/02/2024 9:30 AM EDT Clinical Support [facility] MEDICINE [address] [place] [phone] Layne Gonzalez RN 12/02/2024 1:30 PM EDT Office Visit [facility] MEDICINE [address] [place] [phone] Arlet Sandoval NP [address] [place] [phone] documented as of this encounter Goals Goal Patient Goal Type Associated Problems Recent Progress Patient-Stated? Author Decrease the frequency of unwanted emotions so that daily functioning is improved General On track( 025 11:53 AM EDT) No Layne Gonzalez RN documented as of this encounter Visit Diagnoses Not on filedocumented in this encounter Additional Health Concerns Assessment Noted Time PHQ-9 Depression Total Score: 4 06/30/19 10:47 AM EST documented as of this encounter Care Teams Senior Network Administrator Relationship Specialty Start Date End Date Arlet Sandoval NP [address] [place] [address] PCP - General Family Medicine 08/12/24 documented as of this encounter
[2024-11-25 12:06] LABS: Anion Gap 11 (12-20); Blood Urea Nitrogen 25 mg/dL (9-16); Calcium 9.0 mg/dL (8.4-10.2); Carbon Dioxide 28 mmol/L (22-29); Chloride 106 mmol/L (96-108); Cholesterol 160 mg/dL (<200); Estimated Glomerular Filt Rate > 60; HDL Cholesterol 36 mg/dL (>40); Hemoglobin A1C 180.6912 umol/L; Potassium 4.1 mmol/L (3.3-5.1); Sodium 141 mmol/L (135-145); Total Hemoglobin (HGBA1C) 4869.3596 umol/L; Triglycerides 264 mg/dL (<150)
== END 2024-11-25 09:03 | disposition home or self-care (01) ==
LOC: HO.HHCL 09:02
PROVIDERS: PCP Nurse Practitioner; Visit Provider Nurse Practitioner
DX: Z13.9 Encounter for screening, unspecified (principal); Z13.1 Encounter for screening for diabetes mellitus
CPT/HCPCS: 36415; 80048; 80061; 83036

== ENCOUNTER 2025-03-17 12:31 | Outpatient (REF) | payer MEDICAID, SELFPAY ==
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
--- OUTSIDE RECORDS SUMMARY | 2025-03-17 09:30 | XMS_ITS | Encounter Summary ---
Author Organization [employer] Address [address] [facility] 7t [place] [address] Care Team Providers Care Grain Broker And Market Operator Name Role Phone Arlet Sandoval BEAUTY CULTURIST Primary Care Provider [phone] Reason for Visit * Reason Comments OBAT F/U Encounter Details Date Type Department Care Team (Late st Contact Info) Description 03/17/2025 9:30 AM EST Office Visit [facility] MEDICINE [address] [place] [address] Sreekanth Lyons MD [address] [place], [place] [phone] Opioid dependence on agonist therapy (CMS/HCC) (HCC) (Primary Dx); Cocaine use; Vaping nicotine dependence, tobacco product Social History Tobacco Use Types Packs/Day Years [...] Description 03/27/2025 11:30 AM EST Office Visit [facility] MEDICINE [address] [place] [address] Arlet Sandoval NP [address] [place] [address] 03/31/2025 11:00 AM EST Clinical Support [facility] MEDICINE [address] [place] [address] Layne Gonzalez, RN 04/21/2025 11:30 AM EST Office Visit [facility] OPTOMETRY [address] [place] [address] Viviane Minor, OD [address] [place] [address] Scheduled Orders Name Type Priority Associated Diagnoses Orde r Schedule Drug Toxicology Monitoring Base Panel, w/Confirmation, Oral Fluid Lab Routine Opioid dependence on agonist therapy (CMS/HCC) (HCC) Ordered: 03/17/2025 documented as of this encounter Goals Goal Patient Goal Type Associated Problems Recent Progress Patient-Stated? Author Decrease the frequency of unwanted emotions so that daily functioning is improved General On track( 025 9:50 AM EDT) No Layne Gonzalez, RN [...] track( 11:05 AM EDT) Yes Layne Gonzalez, KELSEA Note: Plans on coming in on Thursday to get help from [facility]. Has an upcoming appointment and also transportation to get there. 01/20/2025 documented as of this encounter Visit Diagnoses Diagnosis Opioid dependence on agonist therapy (CMS/HCC) ([facility])- Primary Cocaine use Vaping nicotine dependence, tobacco product documented in this encounter Additional Health Concerns Assessment Noted Time PHQ-9 Depression Total Score: 10 11:58 AM EDT documented as of this encounter Care Teams Grain Broker And Market Operator Relationship Specialty Start Date End Date Arlet Sandoval NP [address] [place] [phone] PCP - General Family Medicine 08/12/24 documented as of this encounter
--- OUTSIDE RECORDS SUMMARY | 2025-03-17 14:44 | XMS_ITS | Clinical Summary ---
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 at average risk for colorectal cancer who were screened with both Cologuard and colonoscopy. (Fortunato Vickers al, N Engl J Med 2014;370(14):5223-4144.) Cologuard may produce a false negative or false positive result (no colorectal cancer or precancerous polyp present at colonoscopy follow up). A negative Cologuard test result does not guarantee the absence of CRC or advanced adenoma (pre-cancer). The current Cologuard screening interval is every 3 years. ([place] [employer] and U.S. Multi-Society Task Force). Cologuard performance data in a 10,000 patient pivotal study using colonoscopy as the reference method can be accessed at the following location: [email or web address]/results. Additional description of the Cologuard test process, warnings and precautions can be found at [email or web address]. Stool specimen (specimen) 08/22/2024 11:28 PM EDT 08/24/2024 12:56 PM EDT Arlet Sandoval NP LAB MOLECULAR DIAGNOSTICS ORDER ANTHONY Final Result [id number] (CLIA #:[id number]) [address] [place] [address], * Hepatitis C Antibody with Reflex to HCV, RNA, Quantitative, Real-Time PCR (06/10/2024 10:19 AM EST) Hepatitis C Antibody Nonreactive Nonreactive [facility] Comment:Antibodies to HCV no t detected; does not exclude early acuteHCV infection. Blood Venous blood specimen / Unknown 06/10/2024 10:19 AM EST 06/10/2024 11:56 AM EST Sreekanth Lyons MD LAB BLOOD ORDERABLES Final Res ult Performing Organization Address [facility]/ZIP Co de Phone Number [facility] [address] [place] [phone] HIV-1/2 Antigen and Antibodies, Fourth Generation, with Reflexes (06/10/2024 10:19 AM EST) HIV AB/AG Nonreactive Nonreactive [facility] Comment:HIV-1 p24 Ag and/or HIV-1/HIV-2 Ab not detected.A test result that is nonreactive does not exclude thepossibility of exposure to or infection with HIV-1 and/orHIV-2. Nonreactive results in this assay for individualswith prior exposure to HIV-1 and/or HIV-2 may be due toantigen and antibody levels that are below the limit ofdetection of this assay.The [employer] HIV Ag/Ab Combo assay result andsupplemental assay results should be interpreted inconjunction with the patient's clinical presentation,history and other laboratory results. If the results areinconsistent with clinical evidence, additional testing issuggested to confirm the result. Blood Venous blood specimen / Unknown 06/10/2024 10:19 AM EST 06/10/2024 11:56 AM EST us Sreekanth Lyons MD LAB BLOOD ORDERABLES Final Res ult [facility] [address] [place] [phone] from Last 3 Months or Most Recently Relevant to Health Maintenance [place] [address] [place] [address] C3 [facility] MEDICAID STAND ADULT Care Teams State Historical Society Director Relationship Specialty Start Date End Date Arlet Sandoval NP [address] [place] [address] PCP - General Family Medicine 08/12/24
--- OUTSIDE RECORDS SUMMARY | 2025-03-17 14:44 | XMS_ITS | Encounter Summary ---
Author Organization [employer] Address [address] [facility] 7t [place] [address] Care Team Providers Care Stock Roller Name Role Phone Arlet Sandoval PMO CONSULTANT Primary Care Provider [phone] Reason for Visit * Reason Comments Error (VOID this visit) Encounter Details Date Type Department Care Team ([facility] st Contact Info) Description 03/14/2025 Patient Outreach [facility] MED[facility]INE [address] [place] [address] Arlet Sandoval NP [address] [place] [address] Error (VOID this visit) Social History Tobacco Use Types Packs/Day Years [...] 11:30 AM EST Office Visit [facility]INE [address] [place] [address] Arlet Sandoval NP [address] [place] [address] 03/31/2025 11:00 AM EST Clinical Support [facility] [address] [place] [address] Layne Gonzalez, KELSEA 04/21/2025 11:30 AM EST Office Visit [facility] OPTOMETRY [address] [place] [address] Viviane Minor, OD [address] [place] [address] documented as of this encounter Goals Goal [...] in on Thursday to get help from Set Making Machine Operator. Has an upcoming appointment and also transportation to get there. 01/20/2025 documented as of this encounter Visit Diagnoses Not on filedocumented in this encounter Additional Health Concerns Assessment Noted Time PHQ-9 Depression Total Score: 10 11:58 AM EDT documented as of this encounter Care Teams Stock Roller Relationship Specialty Start Date End Date Arlet Sandoval NP [address] [place] [phone] PCP - General Family Medicine 08/12/24 documented as of this encounter
--- OUTSIDE RECORDS SUMMARY | 2025-03-17 14:44 | XMS_ITS | Encounter Summary ---
Author Organization [employer] Address [address] [facility] [address]t [place] [address] Care Team Providers Care Metal Roofing Mechanic Name Role Phone Arlet Sandoval PAYMENT POSTER Primary Care Provider [phone] Reason for Visit * Reason Comments Med Refill Encounter Details Date Type Department Care Team (Late st Contact Info) Description 01/04/2025 Refill [facility] [address] [place] [address] Sreekanth Lyons MD [address] [place] [address] Uncomplicated opioid dependence (CMS/HCC) Social History Tobacco Use Types Packs/Day Years Used Date Smoking Tobacco: Every Day Cigarettes Passive Smoke Exposure: Current Smokeless Tobacco: Never Comments:Vaping Alcohol Use Standard Drinks/Week Comments Not Currently 0 (1 standard drink = 0.6 oz pur e alcohol) quit 8-9 years ago Depression Answer Date Recorded Patient Health Questionnaire-9 Score 15 08/23/2024 Patient Health Questionnaire-9 Score 15 08/23/2024 Last PHQ-9: Questionnaire Data Not on file 0 08/23/2024 Housing Stability Answer Date Recorded What is [...] Date Recorded Patient Health Questionnaire-2 Score 3 08/23/2024 Internet Access Answer Date Recorded Internet Access [...] Description 03/27/2025 11:30 AM EST Office Visit [facility] [address] [place] [address] Arlet Sandoval NP [address] [place] [address] 03/31/2025 11:00 AM EST Clinical Support [facility] [address] [place] [address] Layne Gonzalez, KELSEA 04/21/2025 11:30 AM EST Office Visit [facility] OPTOMETRY [address] [place] [address] Viviane Minor, OD [address] [place] [address] documented as of this encounter Goals Goal [...] in on Thursday to get help from Demolition Crane Operator. Has an upcoming appointment and also transportation to get there. 01/20/2025 documented as of this encounter Visit Diagnoses Diagnosis Uncomplicated opioid dependence (CMS/HCC) (HCC) documented in this encounter Additional Health Concerns Assessment Noted Time PHQ-9 Depression Total Score: 15 025 11:57 AM EDT documented as of this encounter Care Teams Metal Roofing Mechanic Relationship Specialty Start Date End Date Arlet Sandoval NP [address] [place] [address] PCP - General Family Medicine 08/12/24 documented as of this encounter
--- OUTSIDE RECORDS SUMMARY | 2025-03-17 14:44 | XMS_ITS | Encounter Summary ---
Author Organization [employer] Address [address] [facility] 7t [place] [address] Care Team Providers Care Intelligence Operations Name Role Phone Arlet Sandoval SAMPLE DRILLER Primary Care Provider [phone] Reason for Visit * Reason Comments Med Refill Encounter Details Date Type Department Care Team (Late st Contact Info) Description 01/10/2025 Refill [facility] MEDICINE [address] [place] [address] Sreekanth Lyons MD [address] [place] [address] Uncomplicated opioid dependence (CMS/HCC) Social History Tobacco [...] Description 03/27/2025 11:30 AM EST Office Visit [facility] MEDICINE [address] [place] [address] Arlet Sandoval NP [address] [place] [address] 03/31/2025 11:00 AM EST Clinical Support [facility] MEDICINE [address] [place] [address] Layne Gonzalez, KELSEA 04/21/2025 11:30 AM EST Office Visit [facility] OPTOMETRY [address] [place] [address] Viviane Minor, OD [address] [place] [address] documented as of this encounter Goals Goal [...] in on Thursday to get help from Broadcast Operations Engineer. Has an upcoming appointment and also transportation to get there. 01/20/2025 documented as of this encounter Visit Diagnoses Diagnosis Uncomplicated opioid dependence (CMS/HCC) (HCC) documented in this encounter Additional Health Concerns Assessment Noted Time PHQ-9 Depression Total Score: 15 025 11:57 AM EDT documented as of this encounter Care Teams Intelligence Operations Relationship Specialty Start Date End Date Arlet Sandoval NP [address] [place] [phone] PCP - General Family Medicine 08/12/24 documented as of this encounter
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
--- OUTSIDE RECORDS SUMMARY | 2025-03-17 14:44 | XMS_ITS | Encounter Summary ---
Author Organization [employer] Address [address] [facility] [address] [place] [address] Care Team Providers Care Rail Gang Supervisor Name Role Phone Arlet Sandoval ASSOCIATE TRAINER Primary Care Provider [phone] Reason for Visit * Reason Comments Med Refill Encounter Details Date Type Department Care Team (Late st Contact Info) Description 01/11/2025 Refill [facility] MEDICINE [address] [place] [address] Sreekanth Lyons MD [address] [place] [address] Uncomplicated opioid dependence (CMS/HCC) Social History Tobacco [...] Description 03/27/2025 11:30 AM EST Office Visit [facility] MEDICINE [address] [place] [address] Arlet Sandoval NP [address] [place] [address] 03/31/2025 11:00 AM EST Clinical Support [facility] MED[facility]INE [address] [place] [address] Layne Gonzalez, KELSEA 04/21/2025 11:30 AM EST Office Visit [facility] OPTOMETRY [address] [place] [address] Viviane Minor, OD [address] [place] [address] documented as of this encounter Goals Goal [...] in on Thursday to get help from Sanitation Worker Cleaning Equipment. Has an upcoming appointment and also transportation to get there. 01/20/2025 documented as of this encounter Visit Diagnoses Diagnosis Uncomplicated opioid dependence (CMS/HCC) (HCC) documented in this encounter Additional Health Concerns Assessment Noted Time PHQ-9 Depression Total Score: 15 025 11:57 AM EDT documented as of this encounter Care Teams Rail Gang Supervisor Relationship Specialty Start Date End Date Arlet Sandoval NP [address] [place] [address] PCP - General Family Medicine 08/12/24 documented as of this encounter
--- OUTSIDE RECORDS SUMMARY | 2025-03-17 14:44 | XMS_ITS | Clinical Summary ---
Author Organization [facility] Address [address] [facility] [address] [place] [phone] Phone Care Team Providers Care Director Surgical Name Role Phone Pcp, Unknown Primary Care Provider Unavailabl e Allergies Active Allergy Reactions Criticality Noted Date Comments Sulfamethoxazole-Trimethoprim Rash High 2024 Social History Tobacco Use Types Packs/Day Years Used Date Smoking Tobacco: Never Assessed Education Answer Date Recorded Are you interested in more education? Not on foster e 09/05/2022 Are you concerned about learning? Not on file 09/05/2022 No 09/05/2022 No 09/05/2022 Digital Access Answer Date Recorded No 10/03/2022 No 10/03/2022 No 10/03/2022 Reliable internet access at home? Not on file 10/03/2022 Device with a working camera? Not on file Intimate Partner Violence Answer Date R ecorded Are you denied basic needs s uch as food, clothing, or medical care? No 06/30/2024 In the past 12 months have y ou been in a relationship with a person who hurts, threatens, or tries to control you? No 06/30/2024 Are you denied basic needs s uch as food, clothing, or medical care? No 06/30/2024 In the past 12 months have y ou been in a relationship with a person who hurts, threatens, or tries to control you? No 06/30/2024 Sex and Gender Information Value Date Recorded Sex Assigned at Male 07/05/2024 4:43 AM EST Legal Sex Male 9:23 PM EDT Gender Identity Male 07/05/2024 4:43 AM EST Sexual Orientation Don't know 07/05/2024 4: 44 AM EST Last Filed Vital Signs Vital Sign Reading Time Taken Comments Blood Pressure 129/84 06/30/2024 2:25 PM EST Pulse 73 06/30/2024 2:25 PM EST Temperature 36.7 C (98.1 F) 06/30/2024 2:25 PM EST Respiratory Rate 18 06/30/2024 2:25 PM EST Oxygen Saturation 98% 06/30/2024 2:25 PM EST Inhaled Oxygen Concentration - - Weight - - Height - - Body Mass Index - - Plan of Treatment Health Maintenance Due Date Last Done Comments Adult Td,Tdap Booster 1979 LIPID PANEL 1979 DEPRESSION SCREENING 1991 SMOKING Hx and SMOKELESS TOB ACCO SCREENING 1992 HEPATITIS C SCREENING 1997 HIV ONE-TIME SCREENING (18-6 5 YEARS) 1997 COLOGUARD 2024 COLONOSCOPY 2024 COLORECTAL CANCER SCREENING 2024 FIT TEST 2024 FOBT 2024 SIGMOIDOSCOPY 2024 VIRTUAL COLONOSCOPY 2024 INFLUENZA VACCINE (#1) 2024 COVID-19 VACCINE ( - 2024-2 6 season) 2025 HEPATITIS A VACCINES Aged Out No long er eligible based on patient's age to complete this topic HIB VACCINES Aged Out No longer eligi ble based on patient's age to complete this topic MENINGOCOCCAL VACCINES (ACWY) Aged Out No longer eligible based on patient's age to complete this topic MENINGOCOCCAL VACCINES (B) Aged Out N o longer eligible based on patient's age to complete this topic PNEUMOCOCCAL VACCINES (0-49 years) Aged Out No longer eligible based on patient's age to complete this topic Medical Devices Not on file Insurance [facility] [id number] [facility] [place] [address] [facility] [place] [facility] [place] [address] [facility] [place] [address] [facility] [place] [address] [place] [address] [place] [address] Care Teams Director Surgical Relationship Specialty Start Date End Date Pcp, Unknown PCP - General 06/30/24 Additional Source Comments The information contained in this document represents components of the legal health record. It is not the complete legal health record.[facility]
--- OUTSIDE RECORDS SUMMARY | 2025-03-17 14:44 | XMS_ITS | Clinical Summary ---
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 5 08/13/19 26 Active docusate sodium (COLACE) 100 mg capsule Take 100 mg by mouth 2 (two) times daily. 5 Active STOOL SOFTENER 100 mg tablet Take 100 mg by mouth once daily. 5 Active fluticasone (FLONASE) 50 mcg/actuation nasal spray Place 2 Sprays in both nostrils once daily. 5 Active SUBLOCADE 300 mg/1.5 mL injection Inject 300 mg into the skin once Due now. 5 Active omeprazole magnesium (PRILOSEC OTC) 20 mg EC tablet Take by mouth every morning before breakfast. 5 Active nicotine, polacrilex, (POLACRILEX) [address] 2 mg inside cheek as needed. 5 Active traZODone (DESYREL) 100 mg tabletIndicatio ns:Bipolar disorder, current episode mixed, moderate Take 1 Tablet by mouth nightly at bedtime for 60 days. 30 Tablet 1 5 04/22/20 25 Active topiramate (TOPAMAX) 50 mg tabletIndicatio ns:Cocaine use disorder Take 1 Tablet by mouth 2 (two) times daily. 60 Tablet 1 5 Active OLANZapine (ZYPREXA) 15 mg tabletIndicatio ns:Bipolar disorder, current episode mixed, moderate Take 1 Tablet by mouth nightly at bedtime. 30 Tablet 1 5 Active nicotine (NICODERM, STEP 1) 21 mg/[address] 1 Patch onto the skin once daily (every 24 hours). 30 Patch 1 5 Active cloNIDine (CATAPRES) 0.1 mg tabletIndicatio ns:Bipolar disorder, current episode mixed, moderate,Anxiet y Take 2 Tablets by mouth 2 (two) times daily Taking prn 2 xs daily. 120 Tablet 1 5 Active busPIRone (BUSPAR) 15 mg tabletIndicatio ns:Anxiety Take 1 Tablet by mouth 3 (three) times a day for 60 days. 90 Tablet 1 5 04/22/20 25 Active buPROPion XL (WELLBUTRIN XL) 150 mg 24 hr tabletIndicatio ns:Bipolar disorder, current episode mixed, moderate Take 1 Tablet by mouth every morning. 30 Tablet 1 5 Active buPROPion HCL (WELLBUTRIN XL) 300 mg 24 hr tabletIndicatio ns:Bipolar disorder, current episode mixed, moderate Take 1 Tablet by mouth every morning for 60 days. 30 Tablet 1 5 04/22/20 25 Active nicotine (NICODERM, STEP 1) 21 mg/[address] 1 Patch onto the skin once daily (every 24 hours). 02/22/20 25 Discontinu ed(Reorder (E-Cancel Not Sent)) traZODone (DESYREL) 100 mg tabletIndicatio ns:Bipolar disorder, current episode mixed, moderate Take 1 Tablet by mouth nightly at bedtime for 60 days. 30 Tablet 1 5 02/22/20 25 Discontinu ed(Reorder (E-Cancel Not Sent)) OLANZapine (ZYPREXA) 15 mg tabletIndicatio ns:Bipolar disorder, current episode mixed, moderate Take 1 Tablet by mouth nightly at bedtime. 30 Tablet 1 5 02/22/20 25 Discontinu ed(Reorder (E-Cancel Not Sent)) cloNIDine (CATAPRES) 0.1 mg tabletIndicatio ns:Bipolar disorder, current episode mixed, moderate Take 2 Tablets by mouth 2 (two) times daily Taking prn 2 xs daily. 120 Tablet 1 5 02/22/20 25 Discontinu ed(Reorder (E-Cancel Not Sent)) busPIRone (BUSPAR) 15 mg tabletIndicatio ns:Anxiety Take 1 Tablet by mouth 3 (three) times a day for 60 days. 90 Tablet 1 5 02/22/20 25 Discontinu ed(Reorder (E-Cancel Not Sent)) buPROPion XL (WELLBUTRIN XL) 150 mg 24 hr tabletIndicatio ns:Bipolar disorder, current episode mixed, moderate Take 1 Tablet by mouth every morning. 30 Tablet 1 5 02/22/20 25 Discontinu ed(Reorder (E-Cancel Not Sent)) buPROPion HCL (WELLBUTRIN XL) 300 mg 24 hr tabletIndicatio ns:Bipolar disorder, current episode mixed, moderate Take 1 Tablet by mouth every morning for 60 days. 30 Tablet 1 5 02/22/20 25 Discontinu ed(Reorder (E-Cancel Not Sent)) topiramate (TOPAMAX) 50 mg tabletIndicatio ns:Cocaine use disorder Take 1 Tablet by mouth 2 (two) times daily. 60 Tablet 1 5 02/22/20 25 Discontinu ed(Reorder (E-Cancel Not Sent)) Active Problems Problem Noted Date Diagnosed Date Attention or concentration deficit 10/11/2024 Anxiety 06/17/2024 Assessment & Plan (12/20/2024 3:57 PM EDT): Cont buspar 15 mg po tid. Encourage sobriety from cocaine use. +topiramate 50 mg po qhs. Bipolar disorder, unspecified 06/17/2024 Assessment & Plan (02/21/2025 3:23 PM EDT): A: reports okay mood, sleep better. P: Cont current med regimen for now. refills sent today. Assessment & Plan (01/24/2025 2:36 PM EDT): A: reports okay mood, sleep better. P: Cont current med regimen for now. refills sent today. increase topiramate to 50 mg bid for cocaine use then assess mood sxs Assessment & Plan (12/20/2024 3:56 PM EDT): A: reports depressed mood, dysregulated sleep cycle, amotivation, lethargy P: Cont current med regimen for now. refills sent today. increase topiramate to 50 mg qhs for cocaine use then assess mood sxs Assessment & Plan (12/06/2024 1:56 PM EDT): A: reports depressed mood, dysregulated sleep cycle, amotivation, lethargy P: Cont current med regimen for now. Does not need refills today. start topiramate for cocaine use then assess mood sxs Assessment & Plan (12/01/2024 2:47 PM EDT): Cont current med regimen for now. Does not need refills today. Cocaine use disorder 06/17/2024 Assessment & Plan (02/21/2025 3:20 PM EDT): A: Not thinking about using cocaine as much any more. Feels like it is a routine, habit. Trying to use it less often. Thinking about stopping all together. No longer has personal development coach. Sometimes talks to coaches at [facility]. P: Provider to reach out to [facility] sustainability coach. Cont topiramate 50 mg bid. Assessment & Plan (01/24/2025 2:34 PM EDT): A: Small decreases in cravings. Using same amount, once weekly. P: increase topiramate to 50 mg bid Assessment & Plan (12/20/2024 3:55 PM EDT): Started topiramate 50 mg last night, had been taking 25 mg qd. Has not noticed if it has helped with cocaine cravings yet. Last used cocaine few days ago, about 1 xs weekly. Assessment & Plan (12/06/2024 1:55 PM EDT): A; using intranasal approx 1 xs weekly P: start topiramate to help with cravings, then assess mood and associated sxs once sober from cocaine use. Opioid use disorder 06/17/2024 Assessment & Plan (02/21/2025 3:24 PM EDT): On sublocade. Reach out to personal development coach at [facility] Assessment & Plan (01/24/2025 2:37 PM EDT): On sublocade. Recent urges to use but refrained. Encounters Date Type Department Care Team Description 02/21/2025 8:00 AM EDT Behavioral Health Visit [facility] [address] [place] [phone] Claudio Stephens, PMHNP 01/24/2025 8:00 AM EDT Behavioral Health Visit [facility] [address] [place] [phone] Claudio Stephens, PMHNP 01/17/2025 / TELEPHONE [facility] [address] [place] [phone] Claudio Stephens, PMHNP 12/20/2024 10:00 AM EDT Behavioral Health Visit [facility] [address] [place] [phone] Claudio Stephens, PMHNP from Last 3 Months Family History Medical History Relation Name Comments Bipolar disorder Brother Bipolar disorder Father Drug Abuse Father Bipolar disorder Mother Relation Name Status Comments Brother Alive Father Mother Alive Social History Tobacco Use Types Packs/Day Years Used Date Smoking Tobacco: Never Assessed Sex and Gender Information Value Date Recorded Sex Assigned at Not on file Legal Sex Male 10:55 AM PDT Gender Identity Not on file Sexual Orientation Not on file Plan of Treatment Upcoming Encounters Date Type Department Care Team ([facility] st Contact Info) Description 03/28/2025 9:00 AM EST Behavioral Health Visit [facility] [address] [place] [id number] Claudio Stephens, HNP [address] [facility] [place] [phone] Health Maintenance Due Date Last Done Comments Anxiety Screening 1979 Hypertension Screening (#1) 1997 Imm-DTaP/Tdap/Td (1 - Tdap) 1998 CT Colonography 2024 Colonoscopy 2024 Flexible Sigmoidoscopy 2024 Alcohol and Drug Screen 05/11/2024 Depression Annual Screen 05/11/2024 [id number] ( season) 2025 Imm-Influenza (#1) 2025 FIT/gFOBT 08/22/2025 08/22/2024, 08/22/2024 Diabetes Screening 11/25/2025 11/25/2024, 0 11/25/2024, 11/25/2024, Additional history exists Lipid Screening 11/25/2025 11/25/2024 Tobacco Screening 02/21/2026 02/21/2025 Colorectal Cancer Screening 08/23/2027 Fecal DNA 08/23/2027 08/22/2024, 08/22/2024 HIV Screening Completed 06/10/2024, 06/10/2024 Hepatitis C Screening Completed 06/10/2024 Imm-Hepatitis B Completed 02/16/2025, 12/09, 08/12/2024 Insurance [facility] [place] [address] [place]
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
== END 2025-03-17 12:32 | disposition home or self-care (01) ==
LOC: HO.HHCLNP 12:31
PROVIDERS: Emergency Medicine; Visit Provider Registered Nurse
DX: Z51.81 Encounter for therapeutic drug level monitoring (principal)
CPT/HCPCS: 36415; 80307